=== PATIENT | female | born 1975 | race Caucasian/White ===

== ENCOUNTER 2017-12-25 09:13 | Emergency (ER) | payer BC ==
[2017-12-25] MEDS ORDERED: Ibuprofen ADULT LIQ* 600 MG/30 ML UDC PO ONE (11:14)
[2017-12-25] MEDS ORDERED: Acetaminophen TAB* 325 MG PO ONE (11:14)
--- NOTE | 2017-12-25 11:20 | UC ---
General HPI - HPI Summary HPI Summary: family ill with fever, chills, bodyaches thursday x 24 hours then better, thursday noon, pt c/o fever, chills and body aches. today, neck feels stiff, TAM, chest heavy with deep breaths. Tmax 103.9. self tx with tylenol, IB but non this am. has a carbon monoxide detector and it is working. - History of Current Complaint Chief Complaint: UCGeneralIllness Stated Complaint: FEVER,CHILLS,HEAVY CHEST Time Seen by Provider: 12/25/17 11:02 Hx Obtained From: Patient Hx Last Menstrual Period: 12/20/17 Onset/Duration: Gradual Onset Timing: Constant Pain Intensity: 0 Associated Signs & Symptoms: Positive: Fever, Headache. Negative: Diarrhea, Dysuria, Vomiting - Allergy/Home Medications Allergies/Adverse Reactions: Allergies Allergy/AdvReac Type Severity Reaction Status Date / Time No Known Allergies Allergy Verified 12/25/17 09:21 Home Medications: Home Medications Acetaminophen [Acetaminophen Extra Strength] 1,000 mg PO Q6H PRN 12/25/17 [ History Confirmed 12/25/17] Ibuprofen TAB* [Advil TAB*] 600 mg PO Q6H PRN 12/25/17 [History Confirmed ] PMH/Surg Hx/FS Hx/Imm Hx Previously Healthy: Yes - Surgical History Surgical History: None - Family History Known Family History: Positive: Other - cerebral aneurysm - Social History Occupation: Employed Full-time Lives: With Family Alcohol Use: Rare Substance Use Type: None Smoking Status (MU): Never Smoked Tobacco - Immunization History Vaccination Up to Date: Yes Review of Systems Constitutional: Fever, Chills, Fatigue Skin: Negative Eyes: Negative ENT: Negative Respiratory: Other - chest heavy with deep breaths Cardiovascular: Negative Gastrointestinal: Negative Genitourinary: Negative Motor: Negative Neurovascular: Negative Musculoskeletal: Myalgia Neurological: Headache Psychological: Negative Is Patient Immunocompromised?: No All Other Systems Reviewed And Are Negative: Yes Physical Exam Triage Information Reviewed: Yes Appearance: Well-Appearing Vital Signs: Initial Vital Signs Temp 98.2 F 12/25/17 09:18 Pulse 112 12/25/17 09:18 Resp 16 12/25/17 09:18 BP 121/77 12/25/17 09:18 Pulse Ox 99 10/26/18 09:18 Vital Signs Reviewed: Yes Eyes: Positive: Conjunctiva Clear ENT: Positive: Pharynx normal, TMs normal. Negative: Nasal congestion, Nasal drainage Neck: Positive: Supple, Nontender, No Lymphadenopathy. Negative: Nuchal Rigidity Respiratory: Positive: Lungs clear, No respiratory distress, Decreased breath sounds Cardiovascular: Positive: RRR, No Murmur Abdomen Description: Positive: Nontender, No Organomegaly, Soft Bowel Sounds: Positive: Present Musculoskeletal: Positive: ROM Intact, No Edema, Other: - no calf tenderness. Neurological: Positive: Alert Psychological: Positive: Age Appropriate Behavior Skin Exam: Normal Diagnostics - Laboratory Diagnostic Studies Completed/Ordered: rapid flu is negative - Radiology No standard instances Radiology Interpretation Completed By: Radiologist - cCXR=NO ACTIVE CARDIOPULMONARY DISEASE. - EKG Cardiac Rate: NL Cardiac Rhythm: Sinus: Normal - RSR V1, V2 Ectopy: None Re-Evaluation - Re-Evaluation First Eval Re-Evaluation Time: 12:24 Change: Improved - HR 92. PT IS FEELING BETTER POST TX. Course/Dx - Course Course Of Treatment: NON TOXIC. RAPID FLU=NEG. CXR=UNREMARKABLE. IMPROVED WITH TYLENOL AND MOTRIN. NO CONCERN FOR PE, CARBON MONOXIDE DECTOR WORKING AND CO POISON SHOULD NOT CAUSE FEVER TO 103.9. FAMILY ALL HAD SAME X 24 HOURS THEN IMPROVED. TX IS SUPPORTIVE. - Differential Dx - Multi-Symptom Provider Diagnoses: Influenza like illness Discharge - Sign-Out/Discharge Documenting (check all that apply): Patient Departure All imaging exams completed and their final reports reviewed: Yes - Discharge Plan Condition: Stable Disposition: HOME Patient Education Materials: Influenza (DC) Forms: *Work Release Referrals: Regina Grimaldo NP [Primary Care Provider] - 5 Days Additional Instructions: DIAGNOSIS; INFLUENZA LIKE ILLNESS - Billing Disposition and Condition Condition: STABLE Disposition: Home - Attestation Statements Provider Attestation: Per institutional requirements, I have reviewed the chart, however, I was not consulted specifically or made aware of this patient by the midlevel provider. I did not personally evaluate, interact with , or disposition this patient.
--- NOTE | 2017-12-25 11:51 | RAD ---
HISTORY: COUGH, SOB COMPARISONS: None VIEWS: 4: Frontal dual-energy and lateral views of the chest. FINDINGS: CARDIOMEDIASTINAL SILHOUETTE: The cardiomediastinal silhouette is normal. UMER: The umer are normal. PLEURA: The costophrenic angles are sharp. No pleural abnormalities are noted. LUNG PARENCHYMA: The lungs are clear. ABDOMEN: The upper abdomen is clear. There is no subphrenic gas. BONES AND SOFT TISSUES: There is a scoliotic curvature of the spine. OTHER: None. IMPRESSION: NO ACTIVE CARDIOPULMONARY DISEASE.
[2017-12-25] MEDS ORDERED: Ibuprofen TAB* 600 MG ONE (11:53)
[2017-12-25] MEDS ORDERED: Acetaminophen TAB* 325 MG ONE (11:53)
[2017-12-25 12:40] VITALS: BP 111/65
== END 2017-12-25 12:40 | disposition home or self-care (01) ==
LOC: UCCORT 09:13
DX: J11.1 Influenza due to unidentified influenza virus with other respiratory manifestations (principal)
CPT/HCPCS: 71046; 93005; 99212; A9270-GY; G0463